=== PATIENT | female | born 1960 | race Caucasian/White ===

== ENCOUNTER 2023-11-19 10:28 | Outpatient (CLI) | payer OTHER, SELFPAY ==
--- NOTE | ~2023-11-19 | XR_ITS ---
EXAMINATION: XR ankle LT 2V DATE: 11/19/2023 10:51 INDICATION: Pain in left ankle and joints of left foot. TECHNIQUE: 2 views of left ankle were obtained. COMPARISON: None. FINDINGS: Alignment is normal. There is a fracture of distal tip of fibula with 2 mm displacement. 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 There are enthesophytes at the posterior and plantar aspects of c alcaneal tuberosity. Lateral ankle soft tissue swelling is noted. IMPRESSION: 1. Fracture of distal tip of fibula. Reviewed, dictated and finalized at location A.
== END 2023-11-19 10:29 | disposition home or self-care (01) ==
PROVIDERS: PCP Family Medicine Adolescent Medicine; Visit Provider Nurse Practitioner Family
DX: S82.832A Other fracture of upper and lower end of left fibula, initial encounter for closed fracture (principal); X58.XXXA Exposure to other specified factors, initial encounter
CPT/HCPCS: 73600

== ENCOUNTER 2024-02-07 11:45 | Outpatient (CLI) | payer OTHER, SELFPAY ==
--- NOTE | ~2024-02-07 | XR_ITS ---
XR knee RT 3V Ordering provider: Sage Gutierrez MD History: . RT KNEE PAIN X 3 WEEKS, NKI, DIFFICULTY WEIGHTBEARING . Comparison: None. FINDINGS: BONES: No acute fracture or dislocation. JOINT SPACES: Normal. SOFT TISSUES: Normal. IMPRESSION: No acute osseous abnormality right knee. Reviewed, dictated and finalized at location A. 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
== END 2024-02-07 11:46 | disposition home or self-care (01) ==
PROVIDERS: PCP Family Medicine Adolescent Medicine; Visit Provider Family Medicine Adolescent Medicine
DX: M25.561 Pain in right knee (principal)
CPT/HCPCS: 73562

== ENCOUNTER 2024-06-12 08:42 | Outpatient (CLI) | payer OTHER, SELFPAY ==
--- NOTE | ~2024-06-12 | MR_ITS ---
EXAMINATION: MR knee RT wo con DATE: 06/12/2024 09:30 INDICATION: Right knee pain with sudden onset 4 months prior TECHNIQUE: Magnetic resonance imaging (MRI) of the right knee was performed without intravenous contr ast. Sequences included coronal PD-weighted FSE, coronal PD-weighted FS FSE, sagittal T2-weighted FS E, sagittal PD-weighted FS FSE and axial PD weighted fat saturated FSE. COMPARISON: None. FINDINGS: Medial compartment: Complex tear of the body and posterior horn of the medial meniscus. There is partial thickness chondr al ulceration along the weightbearing medial femoral condyle which involves 50% the cartilage thickne ss at the central weightbearing medial femoral condyle but without degenerative subchondral changes. Less severe partial thickness chondral ulceration along the medial tibial plateau. Small marginal ost eophytes are present. Lateral compartment: Lateral meniscus is normal. Small region of partial-thickness chondral fissuring without degenerative subchondral changes at the posterior aspect lateral tibial plateau. Articular cartilage along the we ightbearing lateral femoral condyle is normal. Patellofemoral compartment: Deep chondral ulceration with underlying cortical irregularity and subarticular edema-like signal salome nge extending across the caudal aspect of the medial lateral trochlea and intervening trochlear groov e. Partial-thickness chondral ulceration and deeper fissuring at the patella with tiny foci of subart icular edema-like signal change at the apical ridge and immediately adjacent medial and lateral facet s. Ligaments and tendons: Anterior and posterior cruciate ligaments are normal. The medial collateral ligament and fibular soila ateral ligament complex are normal. The extensor mechanism is normal. The visualized medial and later al hamstring tendons as well as the iliotibial band are normal. Fluid: Physiologic amount of fluid in the joint space. No loose osteochondral bodies identified. Small Campos 's cyst measuring 4.8 cm craniocaudally and 2.0 x 1.2 cm in maximal transaxial dimensions. Osseous/other: Intraosseous ganglion cyst at the proximal tibia. Arises at the footplate of the posterior horn of th e medial meniscus. Small region of increased marrow fluid signal underlying the cephalad aspect of th e trochlear without loss of fat saturated ability which could represent nonspecific edema or potentia lly region of red marrow reexpansion. No fracture or pathologic marrow replacing process. IMPRESSION: 1. Complex medial meniscal tear. 2. 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 2. Small Campos's cyst. Reviewed, dictated and finalized at location A. IMPRESSION: 1. Complex medial meniscal tear. 2. Mild patellofemoral compartment predominant tricompartmental osteoarthritis with high-grade patellar chondromalacia, moderate grade chondromalacia in the m edial compartment and small region of moderate grade chondromalacia at the post erior lateral tibial plateau. 2. Small Campos's cyst.
== END 2024-06-12 08:43 | disposition home or self-care (01) ==
PROVIDERS: PCP Family Medicine Adolescent Medicine; Visit Provider Family Medicine
DX: S83.231A Complex tear of medial meniscus, current injury, right knee, initial encounter (principal); X58.XXXA Exposure to other specified factors, initial encounter; M17.11 Unilateral primary osteoarthritis, right knee; M22.41 Chondromalacia patellae, right knee; M71.21 Synovial cyst of popliteal space [Baker], right knee
CPT/HCPCS: 73721

== ENCOUNTER 2024-08-09 12:56 | Outpatient (CLI) | payer OTHER, SELFPAY ==
--- NOTE | 2024-08-09 14:06 | ECG_ITS ---
Test Date: 2024-08-09 14:11:52 Measurements Intervals Lyndon Rate: 88 P: 62 MI: 145 QRS: 32 QRSD: 80 T: 53 QT: 356 QTc: 432 Interpretive Statements SINUS RHYTHM LOW QRS VOLTAGE IN PRECORDIAL LEADS [QRS DEFLECTION < 1.0 mV IN CHEST LEADS] SEPTAL MYOCARDIAL INFARCTION [40+ ms Q WAVE IN V1/V2], OF INDETERMINATE AGE No previous ECG available for comparison Electronically Signed On 08-10-2024 16:32:49 CDT by Mery Mckenna
== END 2024-08-09 12:57 | disposition home or self-care (01) ==
LOC: ANHSURGERY 13:00
PROVIDERS: PCP Family Medicine Adolescent Medicine; Visit Provider Orthopaedic Surgery
DX: I10 Essential (primary) hypertension (principal); Z01.818 Encounter for other preprocedural examination
CPT/HCPCS: 93005

== ENCOUNTER 2024-08-16 00:29 | Day surgery (SDC) | payer OTHER, SELFPAY ==
[2024-08-08 14:11] VITALS: BMI 37.8
--- NOTE | 2024-08-08 14:44 | PC.NURSE ---
Report to the Outpatient Waiting Room, entrance under the green pavilion located off [facility], at time _11:30am on date _08/16/24 . Planned Procedure Time: _1:30pm .? Time changes happen often and if your time is changed the preop area will call you the afternoon before. - You and your visitor will be asked to self-screen and do not enter if you have any COVID symptoms. Please call surgeon if you need to reschedule. - A mask is optional within the hospital at this time. Patients may have clear liquids (water, carbonated beverages, clear teas, apple juice) until 3 hours prior to surgery (10:30am) with a maximum of 20 ounces. - No food from midnight until time of surgery and no smoking, or chewing tobacco (or any form of nicotine). No chewing gum, candy or mints. Take only the following medications with a SIP of water on the morning of surgery: _PAIN PILL IF NEEDED DO NOT STOP ANY OF YOUR OTHER PRESCRIPTION MEDICATIONS PRIOR TO SURGERY EXCEPT THE FOLLOWING Hold all vitamins and supplements for 3 days per anesthesiologist. Medications to discontinue per physician ____NONE Date to take last dose NONE Please no make-up, nail setswana, hairspray, perfume, deodorant, or body powder the day of surgery.? No jewelry (including any body piercings) or valuables the day of surgery, leave them at home.? Please take a shower or bath the night before, or the morning of, surgery with an antibacterial soap.? Wear comfortable, loose fitting clothing.? - Jewelry must be removed prior to entering the operating room.? Rings and piercings that are not removed may be cut off. - The hospital will not accept responsibility for valuables.? - Please leave all valuables, including medications, at home the day of surgery. If you are going home after surgery, a licensed highway truck driver must drive you home.? - NO public transportation without another adult if you receive anesthesia. - We recommend that an adult stay with you for 24 hours following discharge. - We also recommend that you do not drive, make important decision, drink alcoholic beverages, or take any drugs that were not prescribed by your health care provider for at least 24 hours after your discharge time. Follow any additional instructions given to you from your surgeon. Telephone instructions given to _ MARCELO and asked if any additional questions and then verbalized understanding. Patient advised to call surgeon office or pre surgery nurse liaison [phone] if any additional questions.
[2024-08-16] VITALS (9 sets, daily range): BP systolic 129–171; BP diastolic 57–100; PULSE 77–91; RESP 16–22; TEMP 36.3–36.9; O2SAT 93–100; BMI 43.4
--- NOTE | 2024-08-16 07:20 | WPDHPUPDATE1 ---
History and Physical Update Update Date/Time: 08/16/24 07:20 History and Physical has been reviewed, including an updated exam of the patient. There are NO changes in the patient's condition. Risks, benefits, and alternatives have been discussed and questions answered. Patient agrees to proceed with procedure.
[2024-08-16] MEDS: ACETAMINOPHEN 500 MG TABLET 1000 MG PO (12:13)
[2024-08-16] MEDS: LACTATED RINGERS 1,000 ML 30 ML IV CONT ×2 (12:25→16:04)
[2024-08-16] MEDS: ALBUTEROL SULFATE NEB 2.5 MG/3 ML INH INHALATION (13:12)
--- NOTE | 2024-08-16 13:23 | P.PNAN_ITS ---
Anes - Initial Pre Proc Eval Procedure: Operation Date: 08/16/24 13:30 Proposed Procedures p Right Knee Arthroscopy - Vik Cottrell MD Date/Time: 08/16/24 13:23 Surgeon: Vik Cottrell MD Pre Op Diagnosis: right knee meniscus tear Patient Data Age: 64 Gender: F Height: 1.63 m Weight: 114.7 kg Last Vital Signs Temp 97.4 F L 08/16/24 11:30 Pulse 77 08/16/24 13:12 Resp 16 08/16/24 13:12 BP 142/80 H 08/16/24 11:30 Pulse Ox 97 08/16/24 11:30 O2 Del Method Room Air 08/16/24 11:54 Allergies Allergy/AdvReac Type Severity Reaction Status Date / Time indomethacin Allergy Intermediate Other Verified 08/15/24 13:59 lisinopril AdvReac Intermediate Cough Verified 08/10/24 10:29 Terbinafine Allergy Intermediate Rash Uncoded 08/15/24 14:00 Home Medications ?Medication ?Instructions ?Recorded ?Confirmed ?Type losartan 100 mg tablet 100 mg PO DAILY #90 tabs 02/07/24 08/16/24 Rx etodolac 500 mg tablet 500 mg PO BID #60 tabs 07/17/24 08/16/24 Rx hydrocodone 10 mg-acetaminophen 1 tablet PO QID PRN pain #120 tabs 07/31/24 08/10/24 Rx 325 mg tablet chlorhexidine gluconate 4 % 1 applic topical ONCE #237 mL 08/09/24 08/16/24 Rx topical liquid (Hibiclens) Patient hx anesthesia problems: none Family hx anesthesia problems: none Results Review: All pre-operative results and documents have been reviewed as part of the pre- operative evaluation. [facility] Past Medical History Medical History Patellofemoral arthritis of right knee Essential (primary) hypertension Tinea unguium Left lateral ankle pain Acute frontal sinusitis Left fibular fracture Right knee pain Surgical History Surgical History History of section X2 Family History Family History Father Heart disease Hypertension Mother Diabetes mellitus Lymphoma Social History Social History Social History: caffeine use Smoking packs per day: 0.5 Smoking cigarettes per day: 10.0 Years smoked: 35 Smoking pack-years: 17.50 Smoking status: Current every day smoker Tobacco type: cigarettes Alcohol intake: current Substance use: current Substance use type: marijuana Last use: 08/07/24 Living arrangements: with family Spiritual care concerns: No Anes - Eval Final PreProcedure Day of Procedure 08/16/24 13:23 Patient weight: morbidly obese Heart: regular rate and rhythm Lungs: normal air movement and decreased breath sounds Airway: Mallampati scale class II Neurological: alert and oriented Last oral intake: >/= 8 hours ASA classification: III Emergent: no Anesthetic plan: proceed Anesthesia type and monitoring: general LMA and standard monitoring Results Review: All pre-operative results and documents have been reviewed as part of the pre- operative evaluation. HTN, heavy smoker, 1/2 ppd for 40 years, smoked at 8-9 am today. Informed Consent: The patient's anesthetic plan and its attendant risks and benefits were discussed with the patient/family/POA. Questions were solicited and answers provided to the satisfaction of the patient/family/POA.
[2024-08-16] MEDS: CELECOXIB 200 MG CAPSULE PO (14:40)
[2024-08-16] MEDS: ceFAZolin 2 GM in SODIUM CHLORIDE 0.9% IV 50 ML 100 ML IVPB (15:02)
--- NOTE | 2024-08-16 16:05 | P.OP_ITS ---
Procedure Note - Detailed Date of Procedure 08/16/24 Pre-op Diagnosis right knee meniscus tear Post-op Diagnosis Same Procedure Performed RIGHT KNEE SCOPE Surgeon Vik Cottrell MD Anesthesia General Description of Procedure PATIENT WAS TAKEN TO THE OR. RIGHT LEG WAS PREPPED AND DRAPED STERILE. TROCARS WERE PLACED IN THE USUAL FASHION. CAMERA WAS INTRODUCED. THERE WAS CHONDROMALACIA TO THE PATELLA FEMORAL JOINT. THERE WAS A LOT OF SYNOVITIS IN ALL COMPARTMENTS. THE MEDIAL COMPARTMENT SHOWED CHONDROMALACIA TO THE MEDIAL FEMORAL CONDYLE. A SHAVER WAS USED TO PREFORM A CHONDROPLASTY. THERE WAS A COMPLEX RADIAL MEDIAL MENISCUS TEAR. THE TEAR WAS RESECTED WITH A BITER AND A SHAVER DOWN TO A SMOOTH BASE. THE ACL WAS INTACT. THE LATERAL MENISCUS WAS TORN AT THE ANTERIOR HORN. THE TEAR WAS RESECTED. THE LATERAL COMPARTMENT HAD GRADE MINIMAL CHONDROMALACIA AT THE LATERAL PLATEAU. CHONDROPLASTY WAS MS EFORMED. A SYNOVECTOMY WAS PREFORMED WELL. THE PATELLO FEMORAL JOINT UNDERWENT CHONDROPLASTY. THERE WAS GRADE 3 CHONDROMALACIA IN THE TROCHLEA AND PART OF THE PATELLA. SYNOVECTOMY WAS PREFORMED IN THE SUPERIOR MEDIAL COMPARTMENT. THE WOUNDS WERE APPROXIMATED WITH 4.0 NYLON. STERILE DRESSING WAS APPLIED. PATIENT WAS EXTUBATED. Estimated Blood Loss 5 Complications No immediate complications Condition Stable Disposition PACU
[2024-08-16] MEDS: fentaNYL CITRATE INJ (*CRX) 100 MCG/2 ML VIAL 25 MCG IV PUSH ×4 (16:27→16:39)
== END 2024-08-16 17:35 | disposition home or self-care (01) ==
PROVIDERS: PCP Family Medicine Adolescent Medicine; Visit Provider Orthopaedic Surgery
PROC: (CPT 29870; principal; 2024-08-16 13:30)
DX: S83.231A Complex tear of medial meniscus, current injury, right knee, initial encounter (principal); M94.261 Chondromalacia, right knee; M65.861 Other synovitis and tenosynovitis, right lower leg; M17.11 Unilateral primary osteoarthritis, right knee; I10 Essential (primary) hypertension; F17.210 Nicotine dependence, cigarettes, uncomplicated; F12.90 Cannabis use, unspecified, uncomplicated; X58.XXXA Exposure to other specified factors, initial encounter; E66.01 Morbid (severe) obesity due to excess calories; Z68.41 Body mass index [BMI] 40.0-44.9, adult; Z79.891 Long term (current) use of opiate analgesic; Z98.890 Other specified postprocedural states; Z80.7 Family history of other malignant neoplasms of lymphoid, hematopoietic and related tissues; Z82.49 Family history of ischemic heart disease and other diseases of the circulatory system
CPT/HCPCS: 29881; 29876; 94640; 97161; J0690; A9270; J1100; J2003; J2250; J2405; J2704; J3010; J7120